=== PATIENT | male | born 1960 | race Caucasian/White ===

== ENCOUNTER 2025-04-27 12:27 | Observation (INO) | payer MEDICARE, MEDICAID, SELFPAY ==
--- OUTSIDE RECORDS SUMMARY | 2024-01-30 04:00 | XMS_ITS ---
Author Organization [facility] Address [address] [place] [address] Care Team Providers Care Self Pay Specialist Name Role Phone Rayray Damon MD Primary Care Provider Ketan Andres Unavailable [phone] Migration, Provider Unavailable Unavailable REASON FOR VISIT EMR-Josue Encounters Encounter Location Date Provider Diagnosis Migrated_Facility 0 0 01/30/2024 Provider Migration Plan Of Treatment No Information Progress Notes * KAYKAY DOMÍNGUEZ DDOB:1960 (64 yo M)Acc No.[id number]:01/30/2024 Patient: Ksenia KAYKAY MARR :1960 A ge:63 Y S ex:Male Address:[address] [facility] [address] Subjective: * Chief Complaints: * E MR-Josue * * Date:
--- OUTSIDE RECORDS SUMMARY | 2024-01-31 04:00 | XMS_ITS ---
Author Organization [facility] Address [address] [place] [address] Care Team Providers Care Gill Box Fixer Name Role Phone Rayray Damon MD Primary Care Provider Ketan Andres Unavailable [phone] Migration, Provider Unavailable Unavailable Allergies Allergen (clinical drug ingredient) Drug/Non Drug Allergy documented on EMR Reaction Allergy Type Onset Date Status Latex latex Unknown Allergy Active REASON FOR VISIT EMR-Josue Medications Medication SIG (Take, Route, Frequency, Duration) Notes Start Date End Date Status 24 HR isosorbide mononitrate 60 MG Extended Release Oral Tablet *Reorder from [facility] for eRx and Interaction Alerts* 05/06/2022 06/03/2022 Active clonazePAM 1 MG Oral Tablet *Reorder from [facility] for eRx and Interaction Alerts* 05/06/2022 06/05/2022 Active Benztropine Mesylate 2 MG Oral Tablet *Reorder from [facility] for eRx and Interaction Alerts* 05/06/2022 06/03/2022 Active Atenolol 25 MG Oral Tablet *Reorder from [facility] for eRx and Interaction Alerts* 05/06/2022 06/03/2022 Active ferrous sulfate 325 MG Oral Tablet ORAL *Reorder from [facility] for eRx and Interaction Alerts* 05/06/2022 Active 2 ML aripiprazole 200 MG/ML Prefilled Syringe [Abilify] *Reorder from [facility] for eRx and Interaction Alerts* 05/06/2022 06/03/2022 Active Omeprazole 40 MG Capsule Delayed Release Oral 05/06/2022 06/05/2022 Active Amoxicillin 500 MG Capsule Oral 05/21/2022 05/22/2022 Active Social History Social History Additional Details Category Social Info Options Details Migrated Social History Migrated Social History Smoking Status : Never used tobacco , History of tobacco use : Encounters Encounter Location Date Provider Diagnosis Migrated_Facility 0 0 01/31/2024 Provider Migration Plan Of Treatment No Information Progress Notes * KAYKAY DOMÍNGUEZ DDOB:1960 (64 yo M)Acc No.[id number]:01/31/2024 Patient: KAYKAY SANTIAGO :1960 A ge:63 Y S ex:Male Address:[facility] [address], [facility] [address] Subjective: * Chief Complaints: * E MR-Josue * Family History: F ather: PRN - Father: . M other: PRN - Mother: . * Social History: M igrated Social History: M igrated Social History: Smoking Status : Never used tobacco , History of tobacco use :. * Medications: T akingAmoxicillin 500 MG Capsule Oral , stop date 2Omeprazole 40 MG Capsule Delayed Release Oral , stop date ML aripiprazole 200 MG/ML Prefilled Syringe [Abilify] , stop date 06/03/2022, Notes to Pharmacist: *[facility] for [facility]Rx and Interaction Alerts*ferrous sulfate 325 MG Oral Tablet ORAL , Notes to Pharmacist: *Re[facility] from [facility] for [facility]Rx and Interaction Alerts*Atenolol 25 MG Oral Tablet , stop date 06/03/2022, Notes to Pharmacist: *Reorder from [facility] for eRx and Interaction Alerts*Benztropine Mesylate 2 MG Oral Tablet , stop date 06/03/2022, Notes to Pharmacist: *Reorder from [facility] for eRx and Interaction Alerts*clonazePAM 1 MG Oral Tablet , stop date 06/05/2022, Notes to Pharmacist: *Reorder from [facility] for eRx and Interaction Alerts*24 HR isosorbide mononitrate 60 MG Extended Release Oral Tablet , stop date 06/03/2022, Notes to Pharmacist: *Reorder from [facility] for eRx and Interaction Alerts*Taking Amoxicillin 500 MG Capsule Oral , stop date 05/22/2022Taking Omeprazole 40 MG Capsule Delayed Release Oral , stop date 06/05/2022Taking 2 ML aripiprazole 200 MG/ML Prefilled Syringe [Abilify] , stop date 06/03/2022, Notes to Pharmacist: *Reorder from [facility] for eRx and Interaction Alerts*Taking ferrous sulfate 325 MG Oral Tablet ORAL , Notes to Pharmacist: *Reorder from [facility] for eRx and Interaction Alerts*Taking Atenolol 25 MG Oral Tablet , stop date 06/03/2022, Notes to Pharmacist: *Reorder from [facility] for eRx and Interaction Alerts*Taking Benztropine Mesylate 2 MG Oral Tablet , stop date 06/03/2022, Notes to Pharmacist: *Reorder from [facility] for eRx and Interaction Alerts*Taking clonazePAM 1 MG Oral Tablet , stop date 06/05/2022, Notes to Pharmacist: *Reorder from [facility] for eRx and Interaction Alerts*Taking 24 HR isosorbide mononitrate 60 MG Extended Release Oral Tablet , stop date 06/03/2022, Notes to Pharmacist: *Reorder from [facility] for eRx and Interaction Alerts* * Allergies: l atex: Allergy * * Date:
[2025-04-27] VITALS (23 sets, daily range): BP systolic 115–151; BP diastolic 67–84; PULSE 71–109; RESP 15–18; TEMP 36.4–37; O2SAT 95–100; BMI 29.2; BMI 28.5
--- NOTE | 2025-04-27 12:29 | CT_ITS ---
WS: [id number] CT HEAD NONCONTRAST HISTORY: Altered mental status TECHNIQUE: Contiguous axial imaging performed through the brain. Bone and soft tissue windows. Sagittal and coronal reformats reviewed. All CT scans at [facility] use at least one of these dose optimization techniques: automated exposure control; mA and/or kV adjustment per patient size (includes targeted exams where dose is matched to clinical indication); or iterative reconstruction. DLP: 1218.58 mGy.cm COMPARISON: None available. No acute intracranial hemorrhage, midline shift or mass effect. Mild bifrontal lobe atrophy. No prior infarcts. No significant small vessel disease. Ventricles: Normal size with no hydrocephalus. No inferior displacement of the cerebellar tonsils. Paranasal sinuses: As visualized are clear. Mastoid air cells: Well pneumatized. Calvarium and scalp: Skull is intact with no soft tissue edema or swelling. CT/CT head wo con* [id number] IMPRESSION: 1. No acute intracranial hemorrhage or edema. 2. Very mild bifrontal lobe atrophy. No prior infarcts.
--- NOTE | 2025-04-27 12:29 | XR_ITS ---
WS: [id number] XR chest 1V portable [id number] REASON FOR EXAM: dyspnea/cough FINDINGS: Mild to moderate tortuosity and ectasia of the thoracic aorta. The heart size is within normal limits. Calcified granulomas disease bilaterally. No acute pulmonary parenchymal or pleural abnormality is identified. 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 XR/XR chest 1V portable [id number] IMPRESSION: No acute chest abnormality.
--- NOTE | 2025-04-27 12:35 | ED_ITS ---
HPI - Altered Mental Status 2 General: Chief Complaint: Altered Mental Status Stated Complaint: confusion Time Seen by Provider: 04/27/25 12:29 History of Present Illness: 64-year-old male presents to the emergen cy room via EMS he was found walking by the road is confused and disoriented when I talk to him he gives a couple different stories for still say he is can walk to [place] he was considering walking to [place] then stated he realized that probably be too far. He reports he has been walking around his been very hot out. He has been eating and drinking. He denies any chest pain or abdominal pain. He is difficult to understand but when we coached him to slow down his answers they are understandable although at times a bit nonsensical. He denies any drugs or alcohol use denies any falls or injuries he is not on any anticoagulants per his report and he states he has not hit his head at all recently. He does occasionally complain of some headache while we are taking history. Additionally notes that he has some swelling in his legs. Related Data Home Medications ?Medication ?Instructions ?Recorded ?Confirmed No Known Home Medications 04/27/2504/10 Allergies Allergy/AdvReac Type Severity Reaction Status Date / Time No Known Allergies Allergy Verified 04/27/25 12:33 Review of Systems 2 Const: Denies: fever(s) or chills Card: Denies: chest pain Resp: Denies: dyspnea GI: Denies: abdominal pain : Denies: dysuria, urinary frequency or urinary urgency Musc: Denies: neck pain or back pain Skin/Breast: Denies: rash Physical Exam 2 Const: COMMON NORMALS: no acute distress GENERAL APPEARANCE: cooperative and comfortable ORIENTATION/CONSCIOUSNESS: Yes awake HENMT: COMMON NORMALS: normocephalic, atraumatic and hearing grossly normal bilaterally HEAD & SCALP: normocephalic and atraumatic Resp: COMMON NORMALS: normal respiratory effort, No retractions, No use of accessory muscles and clear to auscultation bilaterally AUSCULTATION: clear to auscultation bilaterally Cardio: COMMON NORMALS: regular rate, regular rhythm and No murmurs present (Cardio) RATE: regular rate RHYTHM: regular rhythm GI: COMMON NORMALS: Soft to palpation and No hepatosplenomegaly present A USCULTATION: Yes normoactive bowel sounds PALPATION: Yes Soft to palpation, No Tenderness to palpation present (GI), No Guarding due to palpation present (GI) and Yes No hepatosplenomegaly present Extremity: COMMON NORMALS: normal to inspection, capillary refill normal, no clubbing, cyanosis or edema, no calf tenderness and no pedal edema Skin: COMMON NORMALS: no rashes or lesions noted GENERAL SKIN EXAM: no rashes or lesions noted Course 2 Vital Signs: Vital signs: Vital Signs Temperature 98.5 F 04/27/25 12:28 Pulse Rate 78 04/27/25 14:06 Respiratory Rate 16 04/27/25 12:28 Blood Pressure 132/74 04/27/25 14:06 Pulse Oximetry 98 04/27/25 14:06 Oxygen Delivery Me thod Room Air 04/27/25 12:39 MDM - Altered Mental Status Medical Decision Making Stool for occult blood positive. Will admit to [facility] transfuse 1 unit will need further evaluation for microcytic anemia. He also has some mild rhabdomyolysis, no acute kidney injury at this time. Has been given IV fluids. CT head negative discussed with hospitalist orders written Medical Records I reviewed the patient's medical records. Lab Data I reviewed the patient's lab results. 04/27/25 12:38 04/27/25 12:38 Radiology Impressions Chest X-Ray 04/27/25 12:29 IMPRESSION: No acute chest abnormality. Head CT 04/27/25 12:29 IMPRESSION: 1. No acute intracranial hemorrhage or edema. 2. Very mild bifrontal lobe atrophy. No prior infarcts. Laboratory Results WBC 11.64 10^3/uL (3.29-11.43) H 04/27/25 12:38 RBC 3.36 10^6/uL (3.85-5.65) L 04/27/25 12:38 Hgb 5.80 g/dL (11.27-16.99) L* 04/27/25 12:38 Hct 21.5 % (37-53) L 04/27/25 12:38 MCV 64.0 fl (82-101) L 04/27/25 12:38 MCH 17.3 pg (27-33) L 04/27/25 12:38 MCHC 27.0 g/dL (30-55) L 04/27/25 12:38 RDW 20.1 % (12.1-15.1) H 04/27/25 12:38 Plt Count 353 10^3/cmm (157-399) 04/27/25 12:38 MPV 8.9 fL (7.4-10.4) 04/27/25 12:38 Neut % (Auto) 87.5 % 04/27/25 12:38 Lymph % (Auto) 4.9 % 04/27/25 12:38 [place] % (Auto) 6.9 % 04/27/25 12:38 Eos % (Auto) 0.0 % 04/27/25 12:38 Baso % (Auto) 0.3 % 04/27/25 12:38 Neut # (Auto) 10.19 10^3/uL (1.8-7.7) H 04/27/25 12:38 Lymph # (Auto) 0.6 10^3/uL (0.8-4.8) L 04/27/25 12:38 [place] # (Auto) 0.8 10^3/uL (0.2-0.9) 04/27/25 12:38 Eos # (Auto) 0.0 10^3/uL (0.0-0.8) 04/27/25 12:38 Baso # (Auto) 0.0 10^3/uL (0.0-0.1) 04/27/25 12:38 Nucleated RBC % (auto) 0 % 04/27/25 12:38 Nucleated RBCs # 0.0 /100WBC 04/27/25 12:38 Specimen Type Arterial 04/27/25 12:35 Sample Site Brachial, left 04/27/25 12:35 ABG pH 7.43 (7.35-7.45) 04/27/25 12:35 ABG pCO2 38.6 mmHg (35-45) 04/27/25 12:35 ABG pO2 84.5 mmHg (80.0-100.0) 04/27/25 12:35 ABG PO2/FiO2 Ratio 402 04/27/25 12:35 ABG HCO3 25.3 mmol/L (22-26) 04/27/25 12:35 ABG O2 Saturation 97.4 04/27/25 12:35 ABG Base Excess 0.9 mmol/L (-2.0-2.0) 04/27/25 12:35 Yuriy Test N/a 04/27/25 12:35 A-a O2 Gradient 2.2 mmHg (5-10) L 04/27/25 12:35 Hematocrit 18.8 % (42-52) L 04/27/25 12:35 Hgb O2 Saturation 94.5 % (95-100) L 04/27/25 12:35 Carboxyhemoglobin 1.7 %THgb (0.4-20.1) 04/27/25 12:35 Methemoglobin 1.2 % (0.4-1.5) 04/27/25 12:35 Total Hemoglobin 6.1 g/dL (14-18) L 04/27/25 12:35 Sodium 139.0 mmol/L (131-143) 04/27/25 12:35 Potassium 4.3 mmol/L (3.5-5.0) 04/27/25 12:35 Glucose 118.0 mg/dL (70-115) H 04/27/25 12:35 Ionized Calcium 1.2 mmol/L (1.1-1.4) 04/27/25 12:35 O2 Delivery Device Room air 04/27/25 12:35 FiO2 21.0 % 04/27/25 12:35 Hand Sole Sewer ID Amh 04/27/25 12:35 Sodium 138 mmol/L (136-145) 04/27/25 12:38 Potassium 4.7 mmol/L (3.5-5.1) 04/27/25 12:38 Chloride 101 mmol/L (98-107) 04/27/25 12:38 Carbon Dioxide 22 mmol/L (22-29) 04/27/25 12:38 Anion Gap 19.7 (5-19) H 04/27/25 12:38 BUN 27 mg/dL (8-23) H 04/27/25 12:38 Creatinine 1.0 mg/dL (0.7-1.2) 04/27/25 12:38 GFR Calculation 74.8 mL/min (90-130) L 04/27/25 12:38 Glucose 115 mg/dL (65-115) 04/27/25 12:38 Calculated Osmolality 292 mOsm/kg (285-295) 04/27/25 12:38 Calcium 9.1 mg/dL (8.5-10.5) 04/27/25 12:38 Magnesium 2.3 mg/dL (1.7-2.3) 04/27/25 12:38 Total Bilirubin 1.0 mg/dL (0.15-1.2) 04/27/25 12:38 AST 32 U/L (0-40) 04/27/25 12:38 ALT 13 U/L (0-41) 04/27/25 12:38 Alkaline Phosphatase 86 U/L (40-130) 04/27/25 12:38 Creatine Kinase 623 U/L (39-308) H* 04/27/25 12:38 Troponin T Baseline 24 ng/L (0-15) H 04/27/25 12:38 Total Protein 6.9 g/dL (6.6-8.7) 04/27/25 12:38 Albumin 4.1 g/dL (3.5-5.2) 04/27/25 12:38 Globulin 2.8 g/dL (1.3-4.6) 04/27/25 12:38 Lipase 22 U/L (13-60) 04/27/25 12:38 Urine Color Yellow (Yellow) 04/27/25 13:41 Urine Appearance Clear (CLEAR) 04/27/25 13:41 Urine pH 5.5 (5-7) 04/27/25 13:41 Ur Specific [place] 1.025 (1.005-1.030) 04/27/25 13:41 Urine Protein Trace (Negative) A 04/27/25 13:41 Urine Glucose (UA) Negative (Normal) 04/27/25 13:41 Urine Ketones Trace (Negative) 04/27/25 13:41 Urine Blood 1+ (Negative) A 04/27/25 13:41 Urine Nitrate Negative (Negative) 04/27/25 13:41 Urine Bilirubin Negative (Negative) 04/27/25 13:41 Urine Urobilinogen 1.0 mg/dL (Negative) 04/27/25 13:41 Ur Leukocyte Esterase Negative (Negative) 04/27/25 13:41 Urine RBC 6-10 /hpf (0-2) 04/27/25 13:41 Urine WBC 0-5 /hpf (0-5) 04/27/25 13:41 Ur Squamous Epith Cells 0-5 /hpf (0-5) 04/27/25 13:41 Amorphous Sediment Not Reportable 04/27/25 13:41 Urine Bacteria None seen /hpf (NONE) 04/27/25 13:41 Hyaline Casts 2.87 /lpf 04/27/25 13:41 Urine Opiates Screen Negative ng/mL (Negative) 04/27/25 13:41 Ur Barbiturates Screen Negative ng/mL (Negative) 04/27/25 13:41 Ur Phencyclidine Scrn Negative ng/mL (Negative) 04/27/25 13:41 Ur Amphetamines Screen Negative ng/mL (Negative) 04/27/25 13:41 U Benzodiazepines Scrn Negative ng/mL (Negative) 04/27/25 13:41 Urine Cocaine Screen Negative ng/mL (Negative) 04/27/25 13:41 U Marijuana (THC) Screen Negative ng/mL (Negative) 04/27/25 13:41 Ethyl Alcohol < 10 mg/dL (0-10) 04/27/25 12:38 Influenza A (PCR) Negative (Negative) 04/27/25 12:38 Influenza Type B (PCR) Negative (Negative) 04/27/25 12:38 RSV (PCR) Negative (Negative) 04/27/25 12:38 SARS-CoV-2 (PCR) Negative (Negative) 04/27/25 12:38 Blood Type O Positive 04/27/25 13:08 Rho(D) Type Rh positive 04/27/25 13:08 All radiology interpretation(s) finalized by discharge Discharge Plan Discharge Patient Disposition: Admitted As Inpatient Clinical Impression: Altered mental status, Microcytic anemia, GI bleed, Rhabdomyolysis Condition: Stable Coding Level of Care Code ED Die Repairer Stamping for Abbey Reed
[2025-04-27 12:46] LABS: ABG PCO2 38.6 mmHg (35-45); ABG PH Result 7.43 (7.35-7.45); Alveolar-Arterial Oxygen Gradi 2.2 mmHg (5-10); Arterial Blood Gas Hematocrit 18.8 % (42-52); Blood Gas Operator Identificat AMH; Blood Gas Sample Site Brachial, left; Blood Gas Sample Type Arterial; Carboxyhemoglobin 1.7 %THgb (0.4-20.1); Glucose Level-ABG 118.0 mg/dL (70-115); HCO3 ABG 25.3 mmol/L (22-26); Ionized Calcium Level - ABG 1.2 mmol/L (1.1-1.4); Methemoglobin 1.2 % (0.4-1.5); Oxygen Saturation ABG 97.4; PO2 ABG 84.5 mmHg (80.0-100.0); PO2 FiO2 Ratio Arterial Blood 402; Potassium Level - ABG 4.3 mmol/L (3.5-5.0); Sodium Level - ABG 139.0 mmol/L (131-143)
[2025-04-27 12:47] LABS: Hematocrit 21.5 % (37-53); Mean Corpuscular HGB Conc 27.0 g/dL (30-55); Mean Corpuscular Hemoglobin 17.3 pg (27-33); Mean Corpuscular Volume 64.0 fl (82-101); Nucleated Red Blood Cells % 0 %; Platelet Count 353 10^3/cmm (157-399); Red Blood Count 3.36 10^6/uL (3.85-5.65); White Blood Count 11.64 10^3/uL (3.29-11.43)
--- NOTE | 2025-04-27 12:53 | PC.NURSE ---
pt unable to urinate with urinal at this time, states has not had water in approx 3 days. pt states has drank soda, but no water. pt will re-attempt after fluids.
[2025-04-27 13:01] LABS: Hemoglobin 5.80 g/dL (11.27-16.99)
--- NOTE | 2025-04-27 13:05 | ECG_ITS ---
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 Measurements Intervals [place] Rate: 90 P: 35 NC: 160 QRS: 28 QRSD: 114 T: 29 QT: 368 QTc: 451 Interpretive Statements SINUS RHYTHM MODERATE INTRAVENTRICULAR CONDUCTION DELAY [110+ ms QRS DURATION] No previous ECG available for comparison Electronically Signed On 04-29-2025 13:11:01 CDT by Antoni Luciano M.D. [email or web address]
[2025-04-27 13:06] LABS: Troponin(5th) Baseline 24 ng/L (0-15)
[2025-04-27 13:10] LABS: Alanine Aminotransferase 13 U/L (0-41); Albumin Level 4.1 g/dL (3.5-5.2); Alkaline Phosphatase 86 U/L (40-130); Anion Gap 19.7 (5-19); Aspartate Amino Transferase 32 U/L (0-40); Blood Urea Nitrogen 27 mg/dL (8-23); Calcium 9.1 mg/dL (8.5-10.5); Carbon Dioxide 22 mmol/L (22-29); Chloride 101 mmol/L (98-107); Creatinine Clr Calc Pharmacy 77.9837; Globulin 2.8 g/dL (1.3-4.6); Glucose 115 mg/dL (65-115); Lipase 22 U/L (13-60); Magnesium 2.3 mg/dL (1.7-2.3); Osmolality Calculated 292 mOsm/kg (285-295); Potassium 4.7 mmol/L (3.5-5.1); Sodium 138 mmol/L (136-145); Total Protein 6.9 g/dL (6.6-8.7)
[2025-04-27 13:14] LABS: Alcohol Level < 10 mg/dL (0-10)
[2025-04-27 13:20] LABS: Respiratory Syncytial Virus Ce NEGATIVE (Negative); SARS-CoV-2 PCR NEGATIVE (Negative)
--- NOTE | 2025-04-27 13:42 | PC.NURSE ---
pt had approx 25mL urine output post straight cath. pt has had approx 700mL NS bolus prior to this.
[2025-04-27 13:51] LABS: Glucose Urine UA Negative (Normal); Nitrate Urine Negative (Negative); Specific Gravity, Urine 1.025 (1.005-1.030)
[2025-04-27 13:55] LABS: Add Urine Microscopic? YES
[2025-04-27 13:58] LABS: PCP Screen Urine Negative (Negative)
[2025-04-27] MEDS: pantoprazole 40 mg SDV 80 MG IVP (14:02)
[2025-04-27 14:05] LABS: UA Slide Review UA Slide Review Perf
--- NOTE | 2025-04-27 14:12 | ECG_ITS ---
[facility]: 2025-04-27 Pat Name: Boby Feldman Department: Room: Gender: Male Cutter Hand: : 1960 Requested By: Arthur Valencia Order Number: [id number] Wilda MD: Cathy Burrows M.D. Measurements Intervals [place] Rate: 78 P: 10 [place]: 171 QRS: 14 QRSD: 108 T: 30 QT: 395 QTc: 450 Interpretive Statements SINUS RHYTHM Compared to ECG 04/27/2025 13:05:32 Intraventricular conduction delay no longer present Electronically Signed On 04-29-2025 20:26:04 CDT by Cathy Burrows M.D. [email or web address]
[2025-04-27 14:40] LABS: Troponin 5 2HR 26.00 ng/L (0-15); Troponin 5 2HR Delta 2.00 ABS# (0-10)
--- NOTE | 2025-04-27 15:19 | PM.HP ---
Providers/Chief Complaint Admitting Physician: Amina Houston MD Chief Complaint: confusion History of Present Illness Boby Feldman is a 64 year old male who has been brought in via EMS today after he was found wandering on the streets. Patient appeared to be confused and disoriented and appeared disheveled and he was therefore brought in for further assessment. Mr. Feldman tells me that he lives in [place] and has been trying to walk to [place]. He did not realize he is in [place] but does say that he started off from [place] 3 days ago and has been walking ever since. He denies any relevant past medical history to me, however I was able to get the name of his primary care physician Dr. Rayray Damon in [place] and call their office for further details. Per prior PCP records, Mr. Feldman was last seen with his PCP in 2022. He has a known history of schizophrenia and decided to stop all his medications about 2 years ago. 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 He has a history of hypertension, type 2 diabetes mellitus, panic disorder, GERD. Today his hemoglobin has been noted to be at 5.8. Last tested in March 2023 his hemoglobin was 14.4. He has no known history of GI bleed, colon cancer or other malignancy. He has a history of recurrent cellulitis of the lower extremities. He is able to tell me his name, age correctly. He states he lives in [place]. He states he has family in [place] by way of his elderly mother. He is unable to give me any contact number, however I was able to get this from his primary care physician's office. , called, left ). He can answer simple direct questions but his speech is very difficult to understand and he does tend to ramble tangentially. He is calm and cooperative. Labs today are notable for hemoglobin of 5.8. He denies any obvious hematemesis or melena however history is questionable. Hemoccult was positive at bedside in the emergency room today. Labs also notable for mild rhabdomyolysis Review of Systems General: Reports: 10 or more systems reviewed and unremarkable except in HPI and below Const: Denies: fever(s), chills or body aches Eyes: Denies: change in vision, blurry vision or photophobia ENMT: Reports: hoarseness; Denies: throat pain, enlarged tonsils, odynophagia or nasal congestion Card: Denies: chest pain, palpitations, irregular heart rhythm, edema, swelling of feet/ankles, lightheadedness, pre-syncope, dyspnea on exertion or orthopnea Resp: Denies: dyspnea, productive cough, non-productive cough, wheezing, stridor, pain on inspiration, change in phlegm color, hemoptysis or chest congestion GI: Denies: abdominal pain, nausea, vomiting, hematemesis, coffee ground emesis, dysphagia, heartburn, diarrhea, constipation, GI cramping, change in stool character, hematochezia or melena : Denies: flank pain, dysuria, urinary frequency, urinary urgency, urinary hesitancy or hematuria Musc: Denies: neck pain, back pain, extremity pain, joint swelling, joint warmth or deformity Neuro: Denies: headache(s), numbness in extremities, weakness in extremities, sensory changes, difficulty walking, frequent falls, dizziness, vertigo, behavioral changes, Slurred speech present or seizure-like activity Psych: Denies: anxiety, depression, suicidal ideation or homicidal ideation Endo: Denies: polyuria, polydipsia, tired all the time, cold intolerance or hot flashes José/Lymph: Denies: easy bruising or easy bleeding Medications/Allergies Home Medications ?Medication ?Instructions ?Recorded ?Confirmed ?Last Taken ?Type No Known Home Medications 04/27/25 04/27/25 Unknown History Allergies Allergy/AdvReac Type Severity Reaction Status Date / Time No Known Allergies Allergy Verified 04/27/25 12:33 PFSH Acute PFSH: Medical History (Updated 04/27/25 @ 15:31 by Amina Houston MD) GERD (gastroesophageal reflux disease) Diabetes mellitus Hypertension Vitals/I&O/Wt Last Vital Signs Temp 98.5 F 04/27/25 12:28 Pulse 80 04/27/25 15:00 Resp 16 04/27/25 12:28 BP 126/74 04/27/25 15:00 Pulse Ox 99 04/27/25 15:00 O2 Del Method Room Air 04/27/25 12:39 04/27/25 04/27/25 04/27/25 06:59 14:59 22:59 Intake Total 1000 / 1000 Balance 1000 / 1000 Weight last 48 hrs Weight 87.09 kg Physical Exam Narrative: General: No acute distress, AO x2 HEENT: PERRLA, pupils bilaterally equal and reactive, pallors not present Chest: Normal vesicular breath sounds, no added sounds, equal good air entry bilaterally CVS: S1-S2 regular, no murmurs, no tachycardia, no gallops, no rubs Abdomen: Soft, nontender, no organomegaly, bowel sounds present Neuro: No focal deficits, no facial deformity, AO x2, moves all extremities in bed EXT: multiple small excoriations in various stages of healing, no current signs of active infection. Data 04/27/25 12:38 04/27/25 12:38 Other Labs: Radiology Impressions Chest X-Ray 04/27/25 12:29 IMPRESSION: No acute chest abnormality. Head CT 04/27/25 12:29 IMPRESSION: 1. No acute intracranial hemorrhage or edema. 2. Very mild bifrontal lobe atrophy. No prior infarcts. Laboratory Results WBC 11.64 10^3/uL (3.29-11.43) H 04/27/25 12:38 RBC 3.36 10^6/uL (3.85-5.65) L 04/27/25 12:38 Hgb 5.80 g/dL (11.27-16.99) L* 04/27/25 12:38 Hct 21.5 % (37-53) L 04/27/25 12:38 MCV 64.0 fl (82-101) L 04/27/25 12:38 MCH 17.3 pg (27-33) L 04/27/25 12:38 MCHC 27.0 g/dL (30-55) L 04/27/25 12:38 RDW 20.1 % (12.1-15.1) H 04/27/25 12:38 Plt Count 353 10^3/cmm (157-399) 04/27/25 12:38 MPV 8.9 fL (7.4-10.4) 04/27/25 12:38 Neut % (Auto) 87.5 % 04/27/25 12:38 Lymph % (Auto) 4.9 % 04/27/25 12:38 Lander % (Auto) 6.9 % 04/27/25 12:38 Eos % (Auto) 0.0 % 04/27/25 12:38 Baso % (Auto) 0.3 % 04/27/25 12:38 Neut # (Auto) 10.19 10^3/uL (1.8-7.7) H 04/27/25 12:38 Lymph # (Auto) 0.6 10^3/uL (0.8-4.8) L 04/27/25 12:38 Lander # (Auto) 0.8 10^3/uL (0.2-0.9) 04/27/25 12:38 Eos # (Auto) 0.0 10^3/uL (0.0-0.8) 04/27/25 12:38 Baso # (Auto) 0.0 10^3/uL (0.0-0.1) 04/27/25 12:38 Nucleated RBC % (auto) 0 % 04/27/25 12:38 Nucleated RBCs # 0.0 /100WBC 04/27/25 12:38 Specimen Type Arterial 04/27/25 12:35 Sample Site Brachial, left 04/27/25 12:35 ABG pH 7.43 (7.35-7.45) 04/27/25 12:35 ABG pCO2 38.6 mmHg (35-45) 04/27/25 12:35 ABG pO2 84.5 mmHg (80.0-100.0) 04/27/25 12:35 ABG PO2/FiO2 Ratio 402 04/27/25 12:35 ABG HCO3 25.3 mmol/L (22-26) 04/27/25 12:35 ABG O2 Saturation 97.4 04/27/25 12:35 ABG Base Excess 0.9 mmol/L (-2.0-2.0) 04/27/25 12:35 Yuriy Test N/a 04/27/25 12:35 A-a O2 Gradient 2.2 mmHg (5-10) L 04/27/25 12:35 Hematocrit 18.8 % (42-52) L 04/27/25 12:35 Hgb O2 Saturation 94.5 % (95-100) L 04/27/25 12:35 Carboxyhemoglobin 1.7 %THgb (0.4-20.1) 04/27/25 12:35 Methemoglobin 1.2 % (0.4-1.5) 04/27/25 12:35 Total Hemoglobin 6.1 g/dL (14-18) L 04/27/25 12:35 Sodium 139.0 mmol/L (131-143) 04/27/25 12:35 Potassium 4.3 mmol/L (3.5-5.0) 04/27/25 12:35 Glucose 118.0 mg/dL (70-115) H 04/27/25 12:35 Ionized Calcium 1.2 mmol/L (1.1-1.4) 04/27/25 12:35 O2 Delivery Device Room air 04/27/25 12:35 FiO2 21.0 % 04/27/25 12:35 Tape Deck Installer ID Amh 04/27/25 12:35 Sodium 138 mmol/L (136-145) 04/27/25 12:38 Potassium 4.7 mmol/L (3.5-5.1) 04/27/25 12:38 Chloride 101 mmol/L (98-107) 04/27/25 12:38 Carbon Dioxide 22 mmol/L (22-29) 04/27/25 12:38 Anion Gap 19.7 (5-19) H 04/27/25 12:38 BUN 27 mg/dL (8-23) H 04/27/25 12:38 Creatinine 1.0 mg/dL (0.7-1.2) 04/27/25 12:38 GFR Calculation 74.8 mL/min (90-130) L 04/27/25 12:38 Glucose 115 mg/dL (65-115) 04/27/25 12:38 Calculated Osmolality 292 mOsm/kg (285-295) 04/27/25 12:38 Calcium 9.1 mg/dL (8.5-10.5) 04/27/25 12:38 Magnesium 2.3 mg/dL (1.7-2.3) 04/27/25 12:38 Total Bilirubin 1.0 mg/dL (0.15-1.2) 04/27/25 12:38 AST 32 U/L (0-40) 04/27/25 12:38 ALT 13 U/L (0-41) 04/27/25 12:38 Alkaline Phosphatase 86 U/L (40-130) 04/27/25 12:38 Creatine Kinase 623 U/L (39-308) H* 04/27/25 12:38 Troponin T Baseline 24 ng/L (0-15) H 04/27/25 12:38 Troponin T 120 Minute 26.00 ng/L (0-15) H 04/27/25 14:19 Delta Troponin T 2.00 ABS# (0-10) 04/27/25 14:19 Total Protein 6.9 g/dL (6.6-8.7) 04/27/25 12:38 Albumin 4.1 g/dL (3.5-5.2) 04/27/25 12:38 Globulin 2.8 g/dL (1.3-4.6) 04/27/25 12:38 Lipase 22 U/L (13-60) 04/27/25 12:38 Urine Color Yellow (Yellow) 04/27/25 13:41 Urine Appearance Clear (CLEAR) 04/27/25 13:41 Urine pH 5.5 (5-7) 04/27/25 13:41 Ur Specific [place] 1.025 (1.005-1.030) 04/27/25 13:41 Urine Protein Trace (Negative) A 04/27/25 13:41 Urine Glucose (UA) Negative (Normal) 04/27/25 13:41 Urine Ketones Trace (Negative) 04/27/25 13:41 Urine Blood 1+ (Negative) A 04/27/25 13:41 Urine Nitrate Negative (Negative) 04/27/25 13:41 Urine Bilirubin Negative (Negative) 04/27/25 13:41 Urine Urobilinogen 1.0 mg/dL (Negative) 04/27/25 13:41 Ur Leukocyte Esterase Negative (Negative) 04/27/25 13:41 Urine RBC 6-10 /hpf (0-2) 04/27/25 13:41 Urine WBC 0-5 /hpf (0-5) 04/27/25 13:41 Ur Squamous Epith Cells 0-5 /hpf (0-5) 04/27/25 13:41 Amorphous Sediment Not Reportable 04/27/25 13:41 Urine Bacteria None seen /hpf (NONE) 04/27/25 13:41 Hyaline Casts 2.87 /lpf 04/27/25 13:41 Urine Opiates Screen Negative ng/mL (Negative) 04/27/25 13:41 Ur Barbiturates Screen Negative ng/mL (Negative) 04/27/25 13:41 Ur Phencyclidine Scrn Negative ng/mL (Negative) 04/27/25 13:41 Ur Amphetamines Screen Negative ng/mL (Negative) 04/27/25 13:41 U Benzodiazepines Scrn Negative ng/mL (Negative) 04/27/25 13:41 Urine Cocaine Screen Negative ng/mL (Negative) 04/27/25 13:41 U Marijuana (THC) Screen Negative ng/mL (Negative) 04/27/25 13:41 Ethyl Alcohol < 10 mg/dL (0-10) 04/27/25 12:38 Influenza A (PCR) Negative (Negative) 04/27/25 12:38 Influenza Type B (PCR) Negative (Negative) 04/27/25 12:38 RSV (PCR) Negative (Negative) 04/27/25 12:38 SARS-CoV-2 (PCR) Negative (Negative) 04/27/25 12:38 Blood Type O Positive 04/27/25 13:08 Rho(D) Type Rh positive 04/27/25 13:08 Antibody Screen Negative 04/27/25 13:08 A&P Assessment and plan 1. Schizophrenia: 64-year-old male with limited history available as above, with a known history of schizophrenia off medications for at least 2 years. Presents today after being picked up by EMS for wandering the streets and appearing to be confused and disoriented. At this present time he is able to answer simple directed questions, however does have tangential thoughts and rambles in conversation. His speech is somewhat hard to understand however he was able to give me his correct age, date of , tell me the name of his PCP so I could get more information and state his address in [place]. He states he was trying to get to [place] by walking on foot. He is unable to tell me why he was trying to get to [place]. 2. Altered mental status: Patient's baseline is not entirely clear at this time, however highly likely that his insight is being affected by his history of schizophrenia. CT head is without any acute intracranial events. Unlikely stroke. There are no fecal deficits on exam. Will obtain psychiatry consult. Urine drug screen negative for opiates barbiturates PCP, amphetamines benzos and cocaine. Negative Ethyl alcohol level. 3. Anemia: Severe anemia noted. Hemoglobin 5.8. Last known baseline from 2022 at 14.4. Occult blood is positive in the emergency room today. He is currently hemodynamically stable, I suspect that the anemia may be chronic given his hemodynamic stability. Will obtain general surgery consult to assess for endoscopic evaluation. Protonix 80 mg IV given in the emergency room. Will continue with Protonix 40 mg IV every 12 hours. Add Carafate. Obtain iron panel, reticulocyte count, B12 folic acid TSH for further assessment. T. bili normal, unlikely a hemolytic process. 4. GI bleed: Fecal occult blood positive. Will consult general surgery for endoscopic evaluation. 5. Microcytic anemia: Evaluation as above 6. Rhabdomyolysis: Likely from walking for the past 3 days. CK at 623. Start IV fluids normal saline at 75 cc an hour. Recheck CK with a.m. labs 7. Hypertension: Blood pressure is currently well-maintained. Will closely monitor and start medications if needed 8. Diabetes mellitus: Obtain HbA1c to assess baseline. Current glucose at 115. Will add insulin sliding scale if A1c within diabetic range. Plan: DVT prophylaxis: SCDs only. Anticoagulation contraindicated given severe anemia and concern for GI bleed. Full code Attempted to call patient's mother at [phone] however did not receive an answer. I have left message on voicemail to call us back. PDMP PDMP Reviewed: Not Reviewed Attestations Medical Necessity Statement*: Greater than 2 midnight stay is anticipated Coding Level of Care Code Acute Code for Chg Fwd High MDM includes number and complexity of problems actively addressed during encounter, amount and/or complexity of data reviewed/ordered and described risk of complication, morbidity or mortality of management as documented Diagnoses Schizophrenia F20.9 Altered mental status R41.82 Anemia D64.9 GI bleed K92.2 Microcytic anemia D50.9 Rhabdomyolysis M62.82 Hypertension I10 Diabetes mellitus E11.9
[2025-04-27] MEDS: pantoprazole 40 mg SDV IVP (16:03)
[2025-04-27 16:19] LABS: Retic Production Index 0.55
[2025-04-27 16:30] LABS: Hematocrit 20.1 % (37-53)
[2025-04-27 16:53] LABS: Ferritin 8 ng/mL (30-400); Iron 11 ug/dL (59-158); Thyroid Stimulating Hormone 1.76 uIU/mL (0.27-4.20); Total Iron Binding Capacity 362 mcg/dl; Unsaturated Iron Binding 351 ug/dL (112-347); Vitamin B12 405 pg/mL (232-1245)
[2025-04-27 17:09] LABS: Estmated Average Glucose 103; Hemoglobin A1C 5.2 % (4.0-6.0)
[2025-04-27 18:00] LABS: HIV 1 & 2 Antigen Non-Reactive (Non-Reactiv)
--- NOTE | 2025-04-27 20:21 | ECG_ITS ---
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 Measurements Intervals [place] Rate: 80 P: 44 NV: 158 QRS: 47 QRSD: 100 T: 50 QT: 373 QTc: 430 Interpretive Statements SINUS RHYTHM Compared to ECG 04/27/2025 14:12:09 No significant changes Electronically Signed On 04-29-2025 13:19:42 CDT by Antoni Luciano M.D. [email or web address]
[2025-04-27 20:55] LABS: Hepatitis A Antibody IgM Non-Reactive (Nonreactive); Hepatitis B Surface Antigen Non-Reactive (Nonreactive)
--- NOTE | 2025-04-28 00:24 | P.PN_ITS ---
Subjective 2 Subjective: Patient is yelling that he wants to the hospital and pulled out one of his IVs. Nurse asked him questions and he is alert and orient to person place hospital date and his own name and birthdate. Patient is aware that he is here for blood transfusion and has already received his blood fever transfusion. He states that he cannot be held here. gate services supervisor agreed unless patient is put on 96-hour hold Vitals/I&O/Wt Last Vital Signs Temp 98.6 F 04/27/25 21:46 Pulse 71 04/27/25 22:00 Resp 17 04/27/25 21:46 BP 125/69 04/27/25 21:46 Pulse Ox 97 04/27/25 21:46 O2 Del Method Room Air 04/27/25 15:57 04/27/25 04/27/25 04/28/25 14:59 22:59 06:59 Intake Total 1000 / 1000 750 / 1750 Output Total 400 / 400 Balance 1000 / 1000 350 / 1350 Weight last 48 hrs Weight 85.275 kg Weight 87.09 kg Data 04/27/25 16:03 04/27/25 12:38 A&P Assessment and plan 1. Schizophrenia: Patient stopped his medications 2 years ago. He has been treated for blood loss anemia and also rhabdomyolysis he is not at immediate risk of decompensation or . Patient cannot be held against as well and so is allowed to leave AMA 2. Agitation: PDMP PDMP Reviewed: Not Reviewed Attestations 2 Medical Necessity Statement*: Patient refused to stay and left AMA Coding Level of Care Code 44841 Diagnoses Schizophrenia F20.9 Agitation R45.1 Time Spent (min) 15
--- NOTE | 2025-04-28 00:28 | P.DS_ITS ---
Discharge Providers Date of Admission: 04/27/25 14:53 Date of Discharge: April 28, 2025 Attending Provider at Admission: Amina Houston MD Attending Provider at Discharge: Amina Houston MD Diagnoses at Discharge Discharge Diagnosis 1. Schizophrenia: 2. Agitation: Reason for Visit Reason for Visit: confusion Brief History: 64-year-old male with history of schizophrenia stopped taking his medications 2 years ago. He was brought in with confusion and disorientation wandering around the streets. He admitted that he had been walking and that had been quite hot. Patient was found to have iron deficiency anemia and rhabdomyolysis with dehydration. Creatinine was 1. Patient was treated with blood transfusion, pantoprazole, sucralfate. Hospital Course Hospital Course Patient received blood transfusion pantoprazole sucralfate. He became agitated and demanded to leave AMA pulled his own IVs. Discharge Data Studies Completed and Pending Completed Studies During Hospitalization Category Date Time Status CT head wo con* [id number] Stat Cat Scan 04/27/25 12:29 Completed XR chest 1V portable [id number] Stat Exams 04/27/25 12:29 Completed Pending at discharge Category Date Time Status CK [Creatine Phosphokinase] AM LABS Lab 04/28/25 04:00 Ordered CMP [Comprehensive Metabolic Panel] AM LABS Lab 04/28/25 04:00 Ordered Complete Blood Count w/Auto AM LABS Lab 04/28/25 04:00 Ordered Hemoglobin and Hematocrit Routine Lab 04/27/25 19:00 Ordered Hemoglobin and Hematocrit Timed Lab 04/27/25 23:59 Ordered RPR with Reflex to Titer Routine Lab 04/27/25 16:03 Received Troponin(5th) 6 hour. Timed Lab 04/27/25 18:38 Ordered Radiology Impressions Chest X-Ray 04/27/25 12:29 IMPRESSION: No acute chest abnormality. Head CT 04/27/25 12:29 IMPRESSION: 1. No acute intracranial hemorrhage or edema. 2. Very mild bifrontal lobe atrophy. No prior infarcts. Laboratory Results WBC 11.64 10^3/uL (3.29-11.43) H 04/27/25 12:38 RBC 3.36 10^6/uL (3.85-5.65) L 04/27/25 12:38 Hgb 5.80 g/dL (11.27-16.99) L* 04/27/25 12:38 Hct 20.1 % (37-53) L* 04/27/25 16:03 MCV 64.0 fl (82-101) L 04/27/25 12:38 MCH 17.3 pg (27-33) L 04/27/25 12:38 MCHC 27.0 g/dL (30-55) L 04/27/25 12:38 RDW 20.1 % (12.1-15.1) H 04/27/25 12:38 Plt Count 353 10^3/cmm (157-399) 04/27/25 12:38 MPV 8.9 fL (7.4-10.4) 04/27/25 12:38 Neut % (Auto) 87.5 % 04/27/25 12:38 Lymph % (Auto) 4.9 % 04/27/25 12:38 [place] % (Auto) 6.9 % 04/27/25 12:38 Eos % (Auto) 0.0 % 04/27/25 12:38 Baso % (Auto) 0.3 % 04/27/25 12:38 Reticulocyte % (Auto) 1.0 % (0.5-2.0) 04/27/25 16:03 Reticulocyte % (Auto) 1.1 % (0.5-2.0) 04/27/25 16:03 Neut # (Auto) 10.19 10^3/uL (1.8-7.7) H 04/27/25 12:38 Lymph # (Auto) 0.6 10^3/uL (0.8-4.8) L 04/27/25 12:38 [place] # (Auto) 0.8 10^3/uL (0.2-0.9) 04/27/25 12:38 Eos # (Auto) 0.0 10^3/uL (0.0-0.8) 04/27/25 12:38 Baso # (Auto) 0.0 10^3/uL (0.0-0.1) 04/27/25 12:38 Nucleated RBC % (auto) 0 % 04/27/25 12:38 Nucleated RBCs # 0.0 /100WBC 04/27/25 12:38 Retic Production Index 0.55 04/27/25 16:03 Specimen Type Arterial 04/27/25 12:35 Sample Site Brachial, left 04/27/25 12:35 ABG pH 7.43 (7.35-7.45) 04/27/25 12:35 ABG pCO2 38.6 mmHg (35-45) 04/27/25 12:35 ABG pO2 84.5 mmHg (80.0-100.0) 04/27/25 12:35 ABG PO2/FiO2 Ratio 402 04/27/25 12:35 ABG HCO3 25.3 mmol/L (22-26) 04/27/25 12:35 ABG O2 Saturation 97.4 04/27/25 12:35 ABG Base Excess 0.9 mmol/L (-2.0-2.0) 04/27/25 12:35 Yuriy Test N/a 04/27/25 12:35 A-a O2 Gradient 2.2 mmHg (5-10) L 04/27/25 12:35 Hematocrit 18.8 % (42-52) L 04/27/25 12:35 Hgb O2 Saturation 94.5 % (95-100) L 04/27/25 12:35 Carboxyhemoglobin 1.7 %THgb (0.4-20.1) 04/27/25 12:35 Methemoglobin 1.2 % (0.4-1.5) 04/27/25 12:35 Total Hemoglobin 6.1 g/dL (14-18) L 04/27/25 12:35 Sodium 139.0 mmol/L (131-143) 04/27/25 12:35 Potassium 4.3 mmol/L (3.5-5.0) 04/27/25 12:35 Glucose 118.0 mg/dL (70-115) H 04/27/25 12:35 Ionized Calcium 1.2 mmol/L (1.1-1.4) 04/27/25 12:35 O2 Delivery Device Room air 04/27/25 12:35 FiO2 21.0 % 04/27/25 12:35 Biofuels Research Scientist ID [id number] 04/27/25 12:35 Sodium 138 mmol/L (136-145) 04/27/25 12:38 Potassium 4.7 mmol/L (3.5-5.1) 04/27/25 12:38 Chloride 101 mmol/L (98-107) 04/27/25 12:38 Carbon Dioxide 22 mmol/L (22-29) 04/27/25 12:38 Anion Gap 19.7 (5-19) H 04/27/25 12:38 BUN 27 mg/dL (8-23) H 04/27/25 12:38 Creatinine 1.0 mg/dL (0.7-1.2) 04/27/25 12:38 GFR Calculation 74.8 mL/min (90-130) L 04/27/25 12:38 Glucose 115 mg/dL (65-115) 04/27/25 12:38 POC Glucose 130 mg/dL (70-110) H 04/27/25 16:41 Estimat Average Glucose 103 04/27/25 16:03 Hemoglobin A1c 5.2 % (4.0-6.0) 04/27/25 16:03 Calculated Osmolality 292 mOsm/kg (285-295) 04/27/25 12:38 Calcium 9.1 mg/dL (8.5-10.5) 04/27/25 12:38 Magnesium 2.3 mg/dL (1.7-2.3) 04/27/25 12:38 Iron 11 ug/dL (59-158) L 04/27/25 16:03 TIBC 362 mcg/dl 04/27/25 16:03 % Saturation 3.0 % (20-50) L 04/27/25 16:03 Unsat Iron Binding 351 ug/dL (112-347) H 04/27/25 16:03 Ferritin 8 ng/mL (30-400) L 04/27/25 16:03 Total Bilirubin 1.0 mg/dL (0.15-1.2) 04/27/25 12:38 AST 32 U/L (0-40) 04/27/25 12:38 ALT 13 U/L (0-41) 04/27/25 12:38 Alkaline Phosphatase 86 U/L (40-130) 04/27/25 12:38 Creatine Kinase 623 U/L (39-308) H* 04/27/25 12:38 Troponin T Baseline 24 ng/L (0-15) H 04/27/25 12:38 Troponin T 120 Minute 26.00 ng/L (0-15) H 04/27/25 14:19 Delta Troponin T 2.00 ABS# (0-10) 04/27/25 14:19 Total Protein 6.9 g/dL (6.6-8.7) 04/27/25 12:38 Albumin 4.1 g/dL (3.5-5.2) 04/27/25 12:38 Globulin 2.8 g/dL (1.3-4.6) 04/27/25 12:38 Lipase 22 U/L (13-60) 04/27/25 12:38 Vitamin B12 405 pg/mL (232-1245) 04/27/25 16:03 Folate 8.9 ng/mL (4.5-32.2) 04/27/25 16:03 TSH 1.76 uIU/mL (0.27-4.20) 04/27/25 16:03 Urine Color Yellow (Yellow) 04/27/25 13:41 Urine Appearance Clear (CLEAR) 04/27/25 13:41 Urine pH 5.5 (5-7) 04/27/25 13:41 Ur Specific [place] 1.025 (1.005-1.030) 04/27/25 13:41 Urine Protein Trace (Negative) A 04/27/25 13:41 Urine Glucose (UA) Negative (Normal) 04/27/25 13:41 Urine Ketones Trace (Negative) 04/27/25 13:41 Urine Blood 1+ (Negative) A 04/27/25 13:41 Urine Nitrate Negative (Negative) 04/27/25 13:41 Urine Bilirubin Negative (Negative) 04/27/25 13:41 Urine Urobilinogen 1.0 mg/dL (Negative) 04/27/25 13:41 Ur Leukocyte Esterase Negative (Negative) 04/27/25 13:41 Urine RBC 6-10 /hpf (0-2) 04/27/25 13:41 Urine WBC 0-5 /hpf (0-5) 04/27/25 13:41 Ur Squamous Epith Cells 0-5 /hpf (0-5) 04/27/25 13:41 Amorphous Sediment Not Reportable 04/27/25 13:41 Urine Bacteria None seen /hpf (NONE) 04/27/25 13:41 Hyaline Casts 2.87 /lpf 04/27/25 13:41 Urine Opiates Screen Negative ng/mL (Negative) 04/27/25 13:41 Ur Barbiturates Screen Negative ng/mL (Negative) 04/27/25 13:41 Ur Phencyclidine Scrn Negative ng/mL (Negative) 04/27/25 13:41 Ur Amphetamines Screen Negative ng/mL (Negative) 04/27/25 13:41 U Benzodiazepines Scrn Negative ng/mL (Negative) 04/27/25 13:41 Urine Cocaine Screen Negative ng/mL (Negative) 04/27/25 13:41 U Marijuana (THC) Screen Negative ng/mL (Negative) 04/27/25 13:41 Ethyl Alcohol < 10 mg/dL (0-10) 04/27/25 12:38 Hepatitis A IgM Ab Non-reactive (Nonreactive) 04/27/25 16:03 Hep Bs Antigen Non-reactive (Nonreactive) 04/27/25 16:03 Hep Bs Antibody < 3.5 (11.5-1000) L 04/27/25 16:03 Hep B Core Total Ab Non-reactive (Nonreactive) 04/27/25 16:03 Hepatitis C Antibody Non-reactive (Nonreactive) 04/27/25 16:03 HIV 1&2 Ab & HIV 1 Ag Non-reactive (Non-Reactiv) 04/27/25 16:03 HIV 1&2 Antibody Non-reactive (Non-Reactiv) 04/27/25 16:03 Influenza A (PCR) Negative (Negative) 04/27/25 12:38 Influenza Type B (PCR) Negative (Negative) 04/27/25 12:38 RSV (PCR) Negative (Negative) 04/27/25 12:38 SARS-CoV-2 (PCR) Negative (Negative) 04/27/25 12:38 Blood Type O Positive 04/27/25 13:08 Rho(D) Type Rh positive 04/27/25 13:08 Antibody Screen Negative 04/27/25 13:08 Crossmatch See Detail 04/27/25 13:08 Vitals Last Vital Signs Temp 98.6 F 04/27/25 21:46 Pulse 71 04/27/25 22:00 Resp 17 04/27/25 21:46 BP 125/69 04/27/25 21:46 Pulse Ox 97 04/27/25 21:46 O2 Del Method Room Air 04/27/25 15:57 Discharge Plan Discharge Patient Disposition: Home Condition: Stable Prescriptions: New pantoprazole 40 mg tablet,delayed release (DR/EC) 40 mg PO BID 14 Days Qty: 60 1RF Rx Instructions: Take twice a day for 2 weeks then once a day No Action No Known Home Medications Discharge Order = DC NOW: Discharge Order (Routine); Ordered 04/28/25 Ordered By: Gilles Christian Patient Instructions: Altered Mental Status (ED), Opioid Safety, Patient Portal & [place] Instructions, Rhabdomyolysis (GEN), GI Bleeding Activity Restrictions/Additional Instructions: Notify patient that I [facility] and he should take 1 twice a day for 14 days then 1 daily. This should help to decrease chance of bleeding. If he has further signs of bleeding or black stools lightheadedness or weakness he should seek medical care. Drink plenty of water and try to stay out of the heat Discharge Attestations Time Spent in Discharge Care*: less than 30 min Quality Metrics Clinical Quality Measures [ No reported AMI, CVA or VTE this stay] Coding Level of Care Code 27154 Diagnoses Schizophrenia F20.9 Agitation R45.1 Time Spent (min) 20
--- NOTE | 2025-04-28 00:29 | PC.NURSE ---
THIS RN HEARD PT SCREAMING AT THE SITTER THAT HE WANTED TO LEAVE. THIS RN AND SECURITY WALKED INTO THE ROOM TO ASSESS THE SITUATION AND PT WAS SCREAMING I WANT TO LEAVE! YOU CAN'T HOLD ME HERE! PT THEN PROCEEDED TO RIP OUT HIS IVS. THIS RN LEFT THE ROOM TO CALL THE MD BIOSOLIDS MANAGEMENT TECHNICIAN TO GET SOMETHING TO CALM HIM DOWN OR TO SEE IF THE PT COULD LEAVE AMA. ANOTHER BIT SHAVER ON THE FLOOR ASKED THE PT THE ORIENTATION QUESTIONS AND PT ANSWERED THEM ALL APPROPRIATELY. THIS RN TOLD THE MD BIOSOLIDS MANAGEMENT TECHNICIAN THAT THE PT WAS ALERT AND ORIENTATED, MD OKAYED PT TO LEAVE AMA. THE BIT SHAVER WENT BACK INTO THE ROOM TO HAVE THE PT SIGN AMA PAPERWORK AND SECURITY ESCORTED THE PT OUT.
--- OUTSIDE RECORDS SUMMARY | 2025-04-29 18:17 | XMS_ITS | Patient Health Record ---
Author Organization [facility] Address [address] [place] [address] Care Team Providers Care Ehs Engineer Name Role Phone Rayray Damon MD Primary Care Provider Ketan Andres Unavailable [phone] Allergies Allergen (clinical drug ingredient) Drug/Non Drug Allergy documented on EMR Reaction Allergy Type Onset Date Status Latex latex Unknown Allergy Active Reason For Referral No Information Medications Medication SIG (Take, Route, Frequency, Duration) Notes Start Date End Date Status clonazePAM 1 MG Tablet 1/2 tablet in the morning, 1 tablet at night Orally twice a day as directed Not-Taking hydrOXYzine HCl 50 MG Tablet 1 tablet as needed Orally every 6 hrs Active Benztropine Mesylate 2 MG Tablet 1 tablet Orally BID; Duration: 30 day(s) Active Citalopram Hydrobromide 20 MG Tablet 1 tablet Orally Once a day Active Abilify Maintena 400 MG Prefilled Syringe 1 injection Intramuscular once a month Active ARIPiprazole 5 MG Tablet 1 tablet Orally Once a day Active Atenolol 25 MG Tablet 1 tablet Orally Once a day; Duration: 90 days Active Nitrostat 0.4 MG Tablet Sublingual 1 tablet Sublingual Q 5 MIN, XS 3 PRN CP, GO TO ER IF TAKES 3RD PILL. NO IMPOTENCY MED WITHIN 48 HRS.; Duration: 30 DAYS 09/26/2019 Active Isosorbide Mononitrate ER 60 MG Tablet Extended Release 24 Hour 1 tablet Orally Once a day; Duration: 90 days Active ferrous sulfate 325 MG Oral Tablet ORAL *Reorder from [employer] for eRx and Interaction Alerts* 05/06/2022 Active Social History Tobacco Use: Social History Observation Description Date Details (start date - stop date) Never Smoker NA - NA Social History Tobacco Use: Social Info Question Answer Notes xTobacco Use/Smoking Are you a nonsmoker Additional Details Category Social Info Options Details Migrated Social History Migrated Social History Smoking Status : Never used tobacco , History of tobacco use : zzMigrated Social History Tobacco Use: (Tobacco Use/Smoking):Are you a:: never smoker ; Section Notes: never tobacco, denies alcoho l, reports caffeine never tobacco, denies alcoho l, reports caffeine Problems Problem Type SNOMED Code ICD Code Onset Dates Problem Status W/U Status Risk Notes Problem Schizophrenia (33216469) Schizophrenia, unspecified (F20.9) Active confirmed Problem Adjustment disorder with mixed disturbance of emotions AND conduct (28834202) Adjustment disorder with mixed disturbance of emotions and conduct (F43.25) Active confirmed Problem Heart murmur (finding) (37851866) Cardiac murmur, unspecified (R01.1) Active confirmed [facility] [place]-[facility]36 773-Snom ed Descript ion:Hear t murmur Problem Shortness of breath (217015147) Shortness of breath (R06.02) Active confirmed [facility] [place]-1036 773- Problem Mixed hyperlipidemia (079284073) Mixed hyperlipidemia (E78.2) Active confirmed Problem Essential hypertension (13105028) Essential hypertension (I10) Active confirmed Problem Anxiety (61174594) Anxiety (F41.9) Active confirmed Problem Type II diabetes mellitus without complication (993469057) Type 2 diabetes mellitus without complication, without long-term current use of insulin (E11.9) Active confirmed Problem Dyspnea on exertion (70481064) HILARIO (dyspnea on exertion) (R06.09) Active confirmed Problem Thoracic aortic aneurysm without rupture (78342029) Thoracic aortic aneurysm without rupture (I71.2) Active confirmed Problem Fatigue (52873026) Fatigue, unspecified type (R53.83) Active confirmed Problem Obesity (352366874) Obesity (E66.9) Active confirmed Problem Benign essential hypertension (1636796) Benign essential hypertension (I10) Active confirmed Problem Chest pain (89139445) Chest pain (R07.9) Active confirmed Problem Psychosis (21089046) Psychosis (F29) Active confirmed Problem Mild cognitive impairment (985410306) Mild cognitive impairment (G31.84) Active confirmed Plan Of Treatment No Information Insurance Providers Payer Name Payer Address Payer Phone Subscriber Number Group Number Insured Name Patient Relationship to Insured Coverage Start Date Coverage End Date [facility] Medicare Advantage PPO [address] [address] [place] [address] [id number] KAYKAY DOMÍNGUEZ Self - patient is the insured 2 [facility] [address] [address] [place] [address] [id number] KAYKAY DOMÍNGUEZ Self - patient is the insured 9 [place] Medicaid [address] [place] [address] [id number] KAYKAY DOMÍNGUEZ Self - patient is the insured Medical (General) History Medical History History ICD Code hypertension type II diabetes schizophrenia Surgical History Surgery Date(Month/Year) hernia repair
[2025-05-01 10:45] LABS: RPR w(Moniotor) w/REFL Titer NON-REACTIVE (NON-REACTIVE)
== END 2025-04-28 00:34 | disposition home or self-care (01) ==
LOC: ER 14:32 → MEDSURG 18:49
PROVIDERS: Admitting Provider Student in an Organized Health Care Education/Training Program; Emergency Provider Family Medicine; Visit Provider Student in an Organized Health Care Education/Training Program
DX: F20.9 Schizophrenia, unspecified (principal); R45.1 Restlessness and agitation; D50.9 Iron deficiency anemia, unspecified; E86.0 Dehydration; M62.82 Rhabdomyolysis; Z53.29 Procedure and treatment not carried out because of patient's decision for other reasons; I10 Essential (primary) hypertension; E11.9 Type 2 diabetes mellitus without complications; K21.9 Gastro-esophageal reflux disease without esophagitis; F41.0 Panic disorder [episodic paroxysmal anxiety]; K92.2 Gastrointestinal hemorrhage, unspecified
CPT/HCPCS: 36415; 36416; 36430; 36600; 70450; 71045; 80051; 80053; 80306; 80307; 81001; 82330; 82550; 82607; 82728; 82746; 82805; 82962; 83036; 83540; 83550; 83690; 83735; 84443; 84484; 85014; 85025; 85045; 86592; 86705; 86706; 86709; 86803; 86850; 86900; 86920; 87340; 87637; 87806; 93005; 96374; 99285; G0378; J2470; J7030; J9999; P9016